=== PATIENT | female | born 2000 | race African-American/Black ===

== ENCOUNTER 2024-10-22 02:38 | Emergency (ER) | payer OTHER ==
[~2024-10-22] VITALS: Ht 177.8 cm; Wt 124.1 kg
[~2024-10-22 02:38] MED LIST: SERT-158 PO
[2024-10-22 02:42] VITALS: TEMP 98.3
[2024-10-22] MEDS ORDERED: ALBU18HF12 IH (02:45)
[2024-10-22 03:07] LABS: BASOPHILS % (AUTO) 0.3 % (0.0-2.0); EOSINOPHILS % (AUTO) 0.9 % (1.0-6.0); HEMATOCRIT 38.5 % (36-46); HEMOGLOBIN 12.8 g/dL (12.0-16.0); LYMPHOCYTES # (AUTO) 2.7 K/uL (1.0-4.8); LYMPHOCYTES % (AUTO) 44.3 % (22.0-44.0); MEAN CORPUSCULAR HEMOGLOBIN 29.3 pg (26.0-34.0); MEAN CORPUSCULAR HGB CONC 33.3 G/dL (31.0-37.0); MEAN CORPUSCULAR VOLUME 88 fL (80-100); MONOCYTES # (AUTO) 0.4 K/uL (0.1-1.0); MONOCYTES % (AUTO) 6.1 % (2.0-9.0); NEUTROPHILS % (AUTO) 48.4 % (40.0-70.0); PLATELET COUNT (AUTO) 330 K/uL (150-450); RED BLOOD CELL COUNT(AUTO) 4.38 MIL/uL (4.00-5.20); RED CELL DISTRIBUTION WIDTH 12.8 % (11.5-14.5); WHITE BLOOD COUNT (AUTO) 6.2 K/uL (4.5-11.0)
[2024-10-22 03:15] LABS: ANION GAP 6 mmol/L (8-16); CALCIUM, TOTAL 8.9 mg/dL (8.8-10.5); CARBON DIOXIDE 31 mmol/L (22-29); CHLORIDE 103 mmol/L (98-107); CREATININE 0.83 mg/dL (0.60-1.30); GLOMERULAR FILTR. RATE CALC > 60 mL/min (>60); GLUCOSE,RANDOM 92 mg/dL (70-110); POTASSIUM 3.8 mmol/L (3.5-5.1); SODIUM SERUM 140 mmol/L (136-145); UREA NITROGEN, BLOOD 11 mg/dL (7-18)
[2024-10-22 03:31] LABS: TROPONIN I-HIGH SENSITIVITY 4 ng/L (<51)
[2024-10-22 07:07] VITALS: BP 143/78; PULSE 73; RESP 20; O2SAT 100
== END 2024-10-22 07:17 | disposition home or self-care (01) ==
LOC: EMS 02:39
DX: R07.89 Other chest pain (principal); J45.909 Unspecified asthma, uncomplicated; F12.90 Cannabis use, unspecified, uncomplicated; F17.210 Nicotine dependence, cigarettes, uncomplicated; Z88.0 Allergy status to penicillin; Z79.899 Other long term (current) drug therapy
CPT/HCPCS: 71045; 80048; 84484; 84703; 85025; 93005; 99285; 36415-L1; 36415-TC

== ENCOUNTER 2024-11-28 20:44 | Emergency (ER) | payer OTHER ==
[~2024-11-28] VITALS: Ht 177.8 cm; Wt 130.9 kg
[~2024-11-28 20:44] MED LIST changes: +ALBU18HF12 IH
[2024-11-28 23:29] VITALS: BP 139/76; PULSE 72; RESP 16; TEMP 98.1; O2SAT 100
[2024-11-29] MEDS ORDERED: DOXY-354 PO (00:07)
[2024-11-29] MEDS: DOXYCYCLINE HYCLATE 100 MG TABLET PO ONE (00:19)
[2024-11-29] MEDS: AZITHROMYCIN 500 MG TABLET PO ONE (00:19)
== END 2024-11-29 00:20 | disposition home or self-care (01) ==
LOC: EMS 20:44
DX: T76.21XA Adult sexual abuse, suspected, initial encounter (principal); J45.909 Unspecified asthma, uncomplicated; F12.90 Cannabis use, unspecified, uncomplicated; F17.210 Nicotine dependence, cigarettes, uncomplicated; Z88.0 Allergy status to penicillin; Z79.899 Other long term (current) drug therapy; Y99.8 Other external cause status
CPT/HCPCS: 99283; J0456

== ENCOUNTER 2025-03-23 21:25 | Emergency (ER) | payer OTHER ==
[~2025-03-23] VITALS: Ht 177.8 cm; Wt 134.6 kg
[~2025-03-23 21:25] MED LIST changes: +DOXY-354 PO
[2025-03-23 21:36] VITALS: BP 127/79; PULSE 93; RESP 20; TEMP 98.3; O2SAT 98
== END 2025-03-24 00:40 | disposition left against medical advice (07) ==
LOC: EMS 21:25
DX: M54.9 Dorsalgia, unspecified (principal); Z53.21 Procedure and treatment not carried out due to patient leaving prior to being seen by health care provider